=== PATIENT | female | born 1970 | race Caucasian/White ===

== ENCOUNTER 2025-07-07 08:21 | Outpatient (CLI) | payer BC | END 2025-07-07 08:22 | disposition home or self-care (01) | LOC: CSHULT 08:21 | PROVIDERS: ATTEND Student in an Organized Health Care Education/Training Program | DX: R10.11 Right upper quadrant pain (principal); Z90.49 Acquired absence of other specified parts of digestive tract | CPT/HCPCS: 76700 ==